=== PATIENT | male | born 1960 | race Caucasian/White ===

== ENCOUNTER 2020-07-27 12:33 | Observation (INO) | payer OTHER, BC ==
--- OUTSIDE RECORDS SUMMARY | 2020-07-27 12:36 | XMS REPORT | Continuity of Care Document ---
:1960 Author Organization [facility] t Address [address] [place] [address] Care Team Providers Name Role Phone Unavailable Unavailable Unavailable Payers Payer Name Policy Type Policy Number Effective Date Expiration Date S ource Problems This patient has no known problems. Allergies, Adverse Reactions, Alerts Allergy Allergy Status Severity Reaction(s) Onset Inactive Treating Comm ents Source Name Type Date Date Clinician hydrocod [place] [facility] [place] [facility] [place] [facility] [place] [facility] Medications This patient has no known medications. Procedures This patient has no known procedures. Results This patient has no known results.
[2020-07-27] MEDS ORDERED: GLUCAGON 1 MG/VIAL IM PRN ×2 (13:12→14:00)
[2020-07-27] MEDS ORDERED: D50W 25 GM/50 ML SYRINGE IV PRN ×2 (13:12→14:00)
[2020-07-27] MEDS ORDERED: NA CHLORIDE 0.9% 1,000 ML IV ONE ×2 (13:15→13:30)
[2020-07-27] MEDS ORDERED: ONDANSETRON 4 MG/2 ML VIAL IV PRN ×2 (13:17→13:19)
[2020-07-27] MEDS ORDERED: NA CHLORIDE 0.9% 1,000 ML IV SCH (14:00)
[2020-07-27 14:14] LABS: Absolute Lymphocytes (CBC) 0.9 K/uL (0.7-4.9); Basophils % 0.3 % (0-1.3); Hematocrit 41.2 % (39.6-49.0); Lymphocytes % 4.6 % (15.3-44.8); MPV 8.4 fL (7.6-11.3)
[2020-07-27 14:25] VITALS: BMI 3983.6
[2020-07-27 14:34] LABS: Lipase 2324 U/L (73-393)
[2020-07-27 14:45] LABS: Amylase 210 U/L (25-115)
[2020-07-27 14:56] LABS: Platelet Estimate ADEQ; White Blood Cell Scan OK (OK)
[2020-07-27 14:57] LABS: Blood Morphology Comment NOT SEEN (NOT SEEN)
[2020-07-27] MEDS: NA CHLORIDE 0.9% 1,000 ML IV SCH (15:13)
--- NOTE | 2020-07-27 15:15 | RAD REPORT ---
EXAM DESCRIPTION: RAD - Chest Pa And Lat (2 Views) - 07/27/2020 2:57 pm CLINICAL HISTORY: chest pain COMPARISON: None TECHNIQUE: Frontal and lateral views of the chest were obtained. FINDINGS: The lungs are clear. Heart size is normal and central vasculature is within normal limit s. No pleural effusion or pneumothorax seen. No acute bony finding noted. No aortic abnormality. IMPRESSION: No acute cardiopulmonary process.
[2020-07-27] MEDS ORDERED: INFLUENZA VACCINE (for 3y+) 0.5 ML DOSE IMVAC ONE (16:00)
[2020-07-27] MEDS ORDERED: D50W 25 GM/50 ML VIAL IV PRN (16:00)
[2020-07-27 16:17] LABS: Urine Appearance CLEAR; Urine Blood NEGATIVE (NEG); Urine Color DK YELLOW; Urine Glucose 3+ (NEG); Urine Protein 1+ (NEG); Urine Specific Gravity >=1.030 (1.005-1.030); Urine Urobilinogen 0.2 mg/dL (0.2-1.0); Urine pH 5.5 (5.0-7.0)
[2020-07-27 16:19] LABS: Urine Microscopic Reflex ORDER UMIC
[2020-07-27] MEDS: INSULIN -REGULAR HUMAN 50 UNIT/0.5 ML ML SQ SCH ×2 (16:30→21:00)
[2020-07-27] MEDS ORDERED: INSULIN -REGULAR HUMAN 50 UNIT/0.5 ML ML SQ SCH (16:30)
[2020-07-27 16:36] LABS: Urine Bilirubin 2+ (NEG)
[2020-07-27 16:37] LABS: Urine Amorphous Sediment 1+ /HPF (NONE SEEN); Urine Bacteria <20 /HPF (NONE SEEN); Urine RBC <5 /HPF (NONE SEEN)
[2020-07-27 17:00] LABS: Potassium 4.2 mmol/L (3.5-5.1)
--- NOTE | 2020-07-27 18:09 | RAD REPORT ---
EXAM DESCRIPTION: CT - Abdomen Pelvis W Contrast - 07/27/2020 5:19 pm CLINICAL HISTORY: diarrhea COMPARISON: CT ABD PELVIS W WO CONTRAST dated 09/04/2014 TECHNIQUE: Biphasic, helical CT imaging of the abdomen and pelvis was performed following 100 ml non -ionic IV contrast. No oral contrast administered. All CT scans are performed using dose optimization technique as appropriate and may include automated exposure control or mA/KV adjustment according to patient size. FINDINGS: No suspicious findings in the lung bases. A small 8 x 4 mm oval nodule in the right lower lobe has not change from 2015. A nearly 6 year stability would indicate benign etiology. Liver is grossly abnormal. There are the innumerable variably sized low-density masses throughout the liver parenchyma largest at 25 mm. Most are under 1 centimeter in size. No splenomegaly or focal spl enic finding. Granulomatous calcifications are present. In the head and uncinate process of the pancr eas there is a 4.5 x 3.5 centimeter mass. Invasion of the third portion duodenum is likely with narro wing of the lumen. A few small adjacent 15 mm or less lymph nodes are present. Periportal lymph nodes are present largest 23 x 15 mm. Gallbladder and biliary tree are also without suspicious finding. Gallstones can be occult on CT imag ing. Symmetric renal function is seen with no hydronephrosis or suspicious renal mass. No pyelonephritis o r acute parenchymal process. Urinary bladder is fully contracted limiting detail. No adrenal abnormal ities. No dilated bowel loops or bowel wall thickening. Appendix is normal. No free air, free fluid or infla mmatory stranding. No hernia, mass or bulky lymphadenopathy. No suspicious bony findings. Findings telephoned to the referring physician 6:05 p.m.. IMPRESSION: Approximately 4.5 centimeter pancreatic malignant mass in the head and uncinate process with invasion of the third portion duodenum. Innumerable metastatic lesions in the liver. Several peripancreatic and periportal lymph nodes are present largest at 23 x 15 mm.
[2020-07-27] MEDS ORDERED: MORPHINE 2 MG/ML SYR IV PRN (18:35)
--- NOTE | 2020-07-27 21:56 | PN ---
Date of Progress Note: 07/27/2020 The patient was seen tonight in the hospital. He was uncomfortable but no significant pain, requirin g IV sedation. Workup included likely elevated lipase and white count. A CT scan did show a growth in the pancreas, obviously most likely malignancy. Discussion was held with the patient in regard to the probability that it was a cancerous growth; however, there were some other possibilities as well , and it would require biopsy and surgical procedure probably to treat. It was suggested to the kenny ent that I would transfer him to care of the pancreatic team in [place] in the next day or so. I hav e discussed the case with Dr. Navarrete as well. We will continue with the n.p.o., IV fluids. Hypergly cemia covered by sliding scale. HR/MODL Voice ID: [id number] Report ID: [id number]
--- NOTE | 2020-07-27 22:02 | HP ---
Date of Admission: 07/27/2020 Entrance Complaint: General malaise, weight loss, anorexia. History Of Present Illness: The patient dates his symptoms back to june when he went inside a restaurant to eat. Since that time, he stated that he has continuous midepigastric and midabdominal pain, was seen in the office a few days prior to admission, and workup was done revealed an elevated lipase. Over the weekend, he was placed on a sliding scale for elevated blood sugars which he accom plished; however, he stated he still had the discomfort and felt he was getting dehydrated and this w as obviously confirmed when he was hospitalized. There was some issue with the CT scan as an outpati ent basis as well from an insurance perspective. In any event, he felt well padded enough to be admi tted and this was done. The patient does state he has lost about 10-15 pounds since june. Past History: The patient has had a history of GI discomfort, however, not to this extent and he has been on some medication in the past 4 days. He also had an EGD and colonoscopy approximately a year ago which was negative. He had had no vomiting, some nausea, and normal bowel movements, as well as normal urination. Family History: Noncontributory. Social History: Nonsmoker and nondrinker at present. Physical Examination: General: The patient is a well-developed middle aged male, in no acute distress. Vital Signs: Stable vital signs. Head and Neck: Normocephalic. Pupils are equal and reactive to light and accommodation. Fundi negativ e. Trachea midline. Thyroid not palpable. ENT: Negative. Chest: Clear to P and A. Cardiovascular: PMI in midclavicular line. Heart: Sounds normal. Peripheral pulses are present and equal bilaterally. Abdomen: Minimal tenderness in midepigastric and paraumbilical area. No guarding, rebound, tendernes s, or rigidity. Bowel sounds hyperactive. Extremities: Slightly dehydrated. Good tone and movement bilaterally. Reflexes physiologic. Rectal: Deferred. Impression: Pancreatitis, hyperglycemia, dehydration, weight loss. Plan: The patient will be admitted and placed on IV fluids, kept n.p.o. Consultation obtained with Gastroenterology. His CT scan will be done and lab work will be monitored. HR/MODL Voice ID: [id number]
[2020-07-27 22:39] VITALS: O2SAT 98
[2020-07-28] MEDS: NA CHLORIDE 0.9% 1,000 ML IV SCH ×3 (01:00→07:58)
[2020-07-28 06:00] LABS: Basophils % 0.7 % (0-1.3); Hematocrit 40.3 % (39.6-49.0); Lymphocytes % 6.6 % (15.3-44.8); MPV 8.3 fL (7.6-11.3); RBC Red Blood Cell Count 4.58 M/uL (4.33-5.43)
[2020-07-28 06:33] LABS: Albumin 2.9 g/dL (3.4-5.0); Bilirubin Total 2.3 mg/dL (0.2-1.0); Potassium 4.1 mmol/L (3.5-5.1); Protein, Total 7.3 g/dL (6.4-8.2)
[2020-07-28] MEDS: INSULIN -REGULAR HUMAN 50 UNIT/0.5 ML ML SQ SCH ×4 (07:30→21:29)
--- NOTE | 2020-07-28 12:18 | EKG ---
Test Date: 2020-07-27 Test Time: 14:01:12 Steel Post Installer: KUSHAL MEASUREMENT RESULTS: Intervals: Rate: 84 [place]: 164 QRSD: 100 QT: 352 QTc: 415 [place]: P: 55 AZ: 164 QRS: 67 T: -12 INTERPRETIVE STATEMENTS: Normal sinus rhythm T wave abnormality, consider inferior ischemia Abnormal ECG Compared to ECG 10/29/1999 07:26:00 T-wave abnormality now present Possible ischemia now present ST (T wave) deviation no longer present Electronically Signed On 07-28-20 12:15:28 STRIPE MARKER by Washington Vargas
[2020-07-28 14:24] VITALS: TEMP 97.7
[2020-07-28] MEDS ORDERED: NA CHLORIDE 0.9% 1,000 ML IV SCH (15:20)
[2020-07-28 17:46] VITALS: BP 140/76
--- NOTE | 2020-07-28 20:10 | PN ---
Date of Progress Note: 07/28/2020 The patient states he actually feels quite a bit better today. He has been n.p.o. most of the day. We will advance his diet to full liquids. I discussed his case with Dr. Marsh, pancreatic surgeon danna Love, and has agreed to take the case and then a transfer process is being done. His enzyme has dropped somewhat as well as his white count and we will continue on the IV fluids. Repeat the blood test if he is still here in the morning and basically monitor him until the transfer takes place. HR/MODL Voice ID: [id number] Report ID: [id number]
[2020-07-28] MEDS ORDERED: ENSURE HIGH PROTEIN 237 ML CAN PO SCH (21:00)
--- NOTE | 2020-08-04 11:00 | CON ---
Date of Consultation: 07/28/2020 Reason For Consultation: Acute pancreatitis with midepigastric pain. Abnormal CT revealing a 4.5 cm pancreatic mass in head of pancreas and new onset diabetes, weight loss. History Of Present Illness: The patient is a 59-year-old white male with history of hypertension, diabetes, lactose intolerance, hyperlipidemia, right shoulder rotator cuff surgery. The patient present to hospital with general malaise, weight loss, anorexia and midepigastric pain extending to left upper quadrant area. The patient found to have pancreatitis. A CT scan revealing pancreatitis but also 4.5 x 3.5 cm mass at the head of the pancreas uncinate process area invaded into the duodenum with adjacent enlarged lymph nodes of 1.5 cm or less and then 2.3 cm lymph nodes in the periportal area of equal to or less than 2.3 cm and numerous metastatic lesions in the liver. Now the patient has had new onset diabetes over the past month with prediabetes for the past 5- 10 years. He has noted decreased weight of 10 pounds over the past 10 days. He says he feels relatively well now that he is in the hospital and has had pain relief with the pain medicines. Of note, the midepigastric pain to left upper quadrant is 4/10, maximum, but none now. Past Medical History: Significant for hypertension, which has resolved, recent weight loss, diabetes, lactose intolerance, hyperlipidemia, right shoulder rotator cuff surgery. Medications At Home: Include diabetes medicines. Allergies: TO CODEINE AND HYDROCODONE. Social History: . One son. Quit tobacco in 1989. Alcohol is rare and drinks a beer maybe every 3 weeks. Family History: Father alive and well with hypertension and benign prostatic hypertrophy. Mother is alive with hypertension and thyroid disorder. Review of Systems: The patient had midepigastric pain in the left upper quadrant, nausea, weight loss. New onset diabetes. He denies any fevers, chills, night sweats, or emesis. The patient denies any chest pain, short of breath, seizure, syncope. Lower extremities, muscle aches, joint aches, backaches, depression, anxiety, hematuria, dysuria, polydipsia, hemoptysis. Physical Examination: Vital Signs: The patient is 6 foot, 204 pounds, BMI 27.7 kg/m2. Obese abdomen. He has a temperature of 97.7 Fahrenheit, pulse 83, respirations 18, blood pressure 136/74, O2 saturation 97%. General: Obese male with a protuberant abdomen. Sitting in bed, no acute distress, talking freely with no pain. HEENT: Normocephalic, atraumatic. Anicteric. Pupils equal, round, and reactive to light. Extraocular movements are intact. Oropharynx is clear. Neck: Supple. No masses. Respirations: Clear to auscultation bilaterally. Cardiac: Regular rate and rhythm. No gallops. Abdomen: Positive bowel sounds. Soft, nondistended, obese. No peritoneal signs. No rebound. He has some mild tenderness in the midepigastric upper quadrant area, but the patient states he feels pretty well. Extremities: No clubbing, cyanosis, or edema. 2+ pulses. Neuro: Grossly nonfocal. 5/5 motor strength, sensation intact to light touch. Laboratory Data: white count of 15.3 down from 18.7 yesterday, hemoglobin of 13.3, hematocrit of 40.3, MCV 88, platelet count of 317, polys of 80 from 86% yesterday, lymphocytes 7, monocytes 7, eosinophils 5%. The patient's sodium 141, potassium 4.1, chloride 110, bicarb 19, BUN of 10, creatinine 0.9, glucose 138, calcium 8.6, phosphorus 3.0, magnesium 2.2, total bilirubin 2.3, AST 61, ALT 198, alkaline phosphatase is 592, B-type natriuretic peptide 66, total protein 7.3, albumin 2.9, amylase of 174, lipase of 1739. CA19-9 came back at 13,493. Yesterday on admission, patient had amylase of 210 and was elevated and a lipase of 2324, that was elevated, it has gone down today. Urine; 3+ glucose, 3+ ketones, 2+ bilirubin, negative leukocyte esterase, negative nitrite, less than 20 bacteria, less than 5 squamous epithelials, 1+ total protein. Acetone level small. COVID testing was negative. CT scan of abdomen and pelvis revealed 4.5 x 3.5, pancreatic mass in the head of pancreas also in the prostate area. to the duodenum with adjacent lymph nodes enlarged up to 1.5 cm and lymph nodes enlarged in the periportal area up to 2.3 cm and numerous metastatic lesions in the liver. Impression: 1. Acute pancreatitis secondary to pancreatic mass/neoplasm with midepigastric pain extended to left upper quadrant 4/10 maximum now down to none associated with nausea, weight loss. No emesis, fevers, chills, night sweats. Amylase went from 210 down to 174, lipase went from 2324 down to 1732 overnight with IV fluid therapy as stated above. CT of abdomen and pelvis revealed a 4.5 x 3.5 cm mass at the junction of the head of the pancreas uncinate process area invading into the duodenum with adjacent lymph nodes, the largest lymph node of 1.5 cm in the periportal area up to 2.3 cm and numerous metastatic lesions in the liver. 2. New onset diabetes x1 month with prediabetes for 5-10 years, possibly indicative of ongoing development of pancreatic neoplasm . 3. 10-pound weight loss over the past 10 day. 4. Elevated white count, improving with therapy for pancreatitis. 5. History of hypertension, resolved with recent weight loss. diabetes. 6. Lactose intolerance, hyperlipidemia, right shoulder surgery for rotator cuff repair. Recommendations: 1. Pancreatic mass evaluation therapy, possibly at tertiary center. Patient for transfer to possibly [facility] it appears for further evaluation. 2. Await CA19-9, which actually came back as stated above, now CA-19-9 antigen is 13,493, very elevated. 3. Continue IV fluids. 4. Continue p.r.n. pain medications. Antiemetics. 5. Allow limited ice chips and water and slowly advanced to clear liquid, full liquids as tolerated. I will consider pancreatic enzyme therapy through q.a.c. q.h.s. MOSES/TIM Voice ID: [id number] Report ID: [id number] [facility]
--- NOTE | 2020-10-03 21:10 | DS ---
Date of Discharge: 07/28/2020 Hospital Course: The patient was admitted to the hospital on 07/27. After being seen in the office, he was obviously dehydrated. He has had significant symptomatology few days prior to this with mid epigastric pain, nausea, and some weight loss. He was admitted with possible pancreatitis and hyperg lycemia. Further evaluation revealed the pancreatic mass, most likely cancer, creating the elevated enzymes that led to the diagnosis of acute pancreatitis and sugar problems as well. During his hospi dayna stay, a CA-19 was also done and this was markedly elevated, although he stated he felt somewhat b lance after having the IV fluids. He had obviously needed more aggressive treatment that can be done locally; therefore, arrangements were made to transfer him to [place] under the care of Dr. Marsh, pancreatic surgeon. This was done on 07/28. He was transferred in fair condition. Final Diagnoses: Pancreatic mass, acute pancreatitis secondary to the mass, dehydration, weight loss , hyperglycemia. HR/MODL Voice ID: [id number] Report ID: [id number]
== END 2020-07-28 23:18 | disposition short-term general hospital (02) ==
LOC: ER 12:33 → 2ND 12:47
PROVIDERS: ADMIT Family Medicine; ATTEND Family Medicine
DX: K86.89 Other specified diseases of pancreas (principal); Z20.822 Contact with and (suspected) exposure to COVID-19; R94.31 Abnormal electrocardiogram [ECG] [EKG]; E86.0 Dehydration; R73.9 Hyperglycemia, unspecified; R63.4 Abnormal weight loss
CPT/HCPCS: 93005; 85025 ×2; 87086; 80048; 36415 ×2; 82010; 82150 ×2; 83735; 84100; 82947 ×7; 83605; 83690 ×2; 80053; 83880; 86301; 74177; 71046; U0003; Q9967; J7030 ×5; 81003; 81015; 87088; G0378